=== PATIENT | female | born 1960 | race Caucasian/White ===

== ENCOUNTER 2018-08-16 05:48 | Day surgery (SDC) | payer BC ==
--- NOTE | 2018-08-06 09:52 | HP ---
HISTORY AND PHYSICAL: DATE OF SURGERY: 08/16/18 DATE OF OFFICE VISIT: 08/06/18 SURGEON: Raven Meraz MD * (DICTATED BY JODY GRACE) PROCEDURE: Left knee arthroscopy with partial medial meniscectomy, possible chondroplasty, possible synovectomy. CHIEF COMPLAINT: Left knee pain. HISTORY OF PRESENT ILLNESS: Ms. Julio Kamara is a 58-year-old female with complaints of left knee pain and an MRI confirmed a meniscus tear and she has elected to proceed with surgery which is scheduled for 08/16/18. PAST MEDICAL HISTORY: 1. Anxiety. 2. PVCs. PAST SURGICAL HISTORY: 1. Cardia ablation. 2. Cyst removal from the right foot. 3. [place] teeth extraction. 4. Excision of a skin lesion from her left ear. CURRENT MEDICATIONS: 1. Vitamin D3. 2. Meloxicam. 3. Restasis. 4. EpiPen. 5. Toprol 75 mg daily. 6. Magnesium 500 mg daily. 7. Xanax 0.25 mg 3 times a day as needed. ALLERGIES: To PENICILLIN AND BEE STING. FAMILY HISTORY: Diabetes, coronary artery disease, and cancer. SOCIAL HISTORY: She is a 58-year-old female. She lives with her . She does not smoke or use drugs. She uses occasional alcohol. REVIEW OF SYSTEMS: A complete 14-point review of systems was reviewed with the patient. It is all negative and noncontributory. PHYSICAL EXAMINATION GENERAL: She is well developed, well nourished, in no acute distress. VITAL SIGNS: She stands 5 feet 3 inches tall, weighs 133 pounds. Her blood pressure 116/76 and her heart rate is 72. HEENT: Normocephalic, atraumatic. NECK: Supple. No palpable lymph nodes. PULMONARY: Lungs are clear to auscultation bilaterally. CARDIAC: Regular rate and rhythm. Strong S1 and S2. ABDOMEN: Soft, nontender, nondistended. MUSCULOSKELETAL: Left lower extremity, the skin is intact. There are no open wounds or abrasions. There is a mild joint effusion. There is some tenderness over the medial joint line. Positive Nanci's. Negative Abhilash's. 2+ dorsalis pedis pulses. She has intact sensation. Her lower extremity muscle group strengths are intact at 5/5. NEUROLOGIC: She is alert and oriented x3. ASSESSMENT AND PLAN: Ms. Julio Kamara is a 58-year-old female with continued complaints of left knee pain and an MRI confirmed a meniscus tear. She has elected to proceed with the left knee arthroscopy with partial medial meniscectomy, possible chondroplasty, possible synovectomy. The surgery is scheduled for 08/16/[address] Meraz discussed the risks and benefits of the surgery at today's visit and all of her questions were answered. She will follow up with Dr. Meraz 2 weeks after the surgery. JODY GRACE [id number]/[facility] #: [id number] MTDRasheed
[~2018-08-16 05:48] MED LIST: Buffered Lidocaine 0.9% SYRIN* 5 ML/SYR SYRINGE INTRADERM ONE
[2018-08-16] MEDS ORDERED: Famotidine IV* 10 MG/ML 2 ML (20 mg) IV ONE (06:00)
[2018-08-16] MEDS ORDERED: Clindamycin 900 MG/D5W BAG(*) 900 MG/50 ML BAG IVPB ONE (06:02)
[2018-08-16] MEDS ORDERED: Famotidine IV* 10 MG/ML 2 ML (20 mg) ONE (06:02)
[2018-08-16] MEDS ORDERED: Buffered Lidocaine 0.9% SYRIN* 5 ML/SYR SYRINGE ONE (06:03)
[2018-08-16] MEDS ORDERED: methylPREDNISolone ACETATE 80* 80 MG/ML 1 ML VIAL ONE (06:57)
[2018-08-16] MEDS ORDERED: EPINEPHRINE 1 MG/ML 1 ML VIAL ONE (06:58)
[2018-08-16] MEDS ORDERED: Bupivacaine 0.5% SDV PF* 30ML VIAL ONE (06:58)
[2018-08-16] MEDS ORDERED: Acetaminophen TAB* 325 MG PO PRN (07:20)
[2018-08-16] MEDS ORDERED: oxyCODONE TAB* 5 MG TAB PO PRN (07:20)
[2018-08-16] MEDS ORDERED: Naloxone* 0.4 MG/ML 1 ML VIAL IV PRN (07:20)
[2018-08-16] MEDS ORDERED: HYDROmorphone INJ1* 1 MG/ML SYRINGE IV PRN (07:20)
[2018-08-16] MEDS ORDERED: DiMENhydriNATE IV* 50 MG/ML VIAL IV PUSH PRN (07:20)
[2018-08-16] MEDS ORDERED: Midazolam* 1 MG/ML 5 ML VIAL (5 MG) ONE (07:28)
[2018-08-16] MEDS ORDERED: fentaNYL* 50 MCG/ML 2 ML VIAL (100 MCG VIAL) ONE (07:45)
[2018-08-16] MEDS ORDERED: Ondansetron INJ* 2 MG/ML VIAL ONE (07:45)
[2018-08-16] MEDS ORDERED: Ketorolac INJ* 30 MG/ML 1 ML VIAL ONE (07:45)
[2018-08-16] MEDS ORDERED: Lidocaine 2% PF * 5 ML VIAL ONE (07:46)
[2018-08-16] MEDS ORDERED: Chloroprocaine 2%* 20 ML VIAL ONE (07:46)
[2018-08-16 09:32] VITALS: BP 124/75
--- NOTE | 2018-08-17 11:02 | OP ---
OPERATIVE NOTE: DATE OF OPERATION: 08/16/18 - SDS DATE OF : 60 ATTENDING SURGEON: Raven Meraz MD GRINDING MACHINE OPERATOR AUTOMATIC: JODY Salazar Ms. did help throughout the procedure with preparation of the leg, wound retraction, manipulation of the knee, and wound closure. ANESTHESIOLOGIST: Dr. Price. ANESTHESIA: Spinal. PRE-OP DIAGNOSES: 1. Left knee medial meniscal tear. 2. Daic-ht-cxwecydz osteoarthritis. POST-OP DIAGNOSES: 1. Left knee medial meniscal tear. 2. Uiwe-la-ajipqjmr osteoarthritis. 3. Radial tear of the lateral meniscus. OPERATIVE PROCEDURE: Left knee arthroscopy with partial medial meniscectomy and partial lateral meniscectomy. ESTIMATED BLOOD LOSS: Less than 25 cc. COMPLICATIONS: None. SPECIMEN: None. BRIEF HISTORY/INDICATION: Ms. Julio Kamara is a 58-year-old female with left knee pain over the last year. She developed mechanical symptoms despite conservative treatment with physical therapy, antiinflammatories, and intraarticular injection. An MRI confirmed a medial meniscal tear. Due to the patient's continued pain and decreased quality of life, she elected to undergo left knee arthroscopy with partial meniscectomy, possible chondroplasty, possible synovectomy. Informed consent was obtained from the patient. She understood the risks of surgery included but were not limited to bleeding, infection, damage to nearby structures, continued pain, need for further surgery , re-tear of the meniscus, continued arthritic progression, stroke, heart attack , blood clot, and . She wished to proceed. INTRAOPERATIVE FINDINGS: Intraoperatively, the patient was noted to have a linear tear in the posterior one-half of the medial meniscus. This is in the white-red zone. She had some grade 2 and 3 [place] cartilage changes in the medial compartment affecting the medial femoral condyle. She also had a radial-type tear of the posterior horn of the lateral meniscus with displacement into the joint. DESCRIPTION OF PROCEDURE: Ms. Julio Kamara was identified in the preanesthesia unit. Her left lower extremity was marked as the correct operative site. Informed consent was signed and placed in the chart. The patient was taken to the operating room and placed under spinal anesthesia. Left lower extremity was prepped and draped in the usual sterile fashion. Preop time-out was made to correctly identify the patient, side, and site. Appropriate perioperative antibiotics were given within 1 hour of incision. A 0.5 cm anterolateral portal incision was made with a 15-blade and carried down through the skin and capsule. Trocar was introduced. As soon as the light and water sources were turned on, there was immediate visualization of the suprapatellar pouch. A tour was made of the knee joint. Suprapatellar pouch had no obvious abnormalities. Patellofemoral compartment had some minimal degenerative changes. No exposed subchondral bone. Medial gutter had no plica or loose body. Medial compartment showed some grade 2 and 3 [place] cartilages changes along the weightbearing portion of the medial femoral condyle. Posterior portion of the medial meniscus had a linear meniscal tear with some anterior displacement. ACL and PCL were intact. The knee was placed in a [id number] position. There was a radial tear in the posterior horn of the lateral meniscus. There was no significant cartilage degeneration in the lateral compartment. Lateral gutter showed no loose body or plica. Under direct visualization, a medial portal incision was made with a 15-blade. Probe was introduced. A second tour of the knee joint was performed. No additional findings were noted. Shaver and straight biter were used to perform partial lateral meniscectomy along the posterior horn of the lateral meniscus. This was in the white-red zone. Further probing of the lateral meniscus showed no additional tears. Next, the straight biter and shaver were used to perform partial medial meniscectomy. This was along the white-red zone of the medial meniscus. Radiofrequency ablation wand was used to further smooth the edge of the meniscus. Further probing of the medial meniscus showed no additional tears. The knee was copiously irrigated with sterile saline. The instruments were carefully removed. Incisions were closed using 3-0 nylon suture. Intraarticular injection of 80 mg Depo-Medrol and 6 cc of 0.25% Marcaine was placed in the knee joint. The patient's incisions were covered with Xeroform, 4x4's, Webril. Ridge pack and cold pack were placed over this. The patient's anesthesia was reversed without difficulty. She was taken to the PACU in stable condition. Intended weightbearing will be weightbearing as tolerated. Intended DVT prophylaxis will be aspirin. She will follow up in the clinic in 2 weeks' time for suture removal. [id number]/[facility] #: [id number] [facility]ITAL[facility]
== END 2018-08-16 09:57 | disposition home or self-care (01) ==
LOC: OR 05:48
PROVIDERS: ATTEND Orthopaedic Surgery Adult Reconstructive Orthopaedic Surgery
DX: S83.242A Other tear of medial meniscus, current injury, left knee, initial encounter (principal); S83.282A Other tear of lateral meniscus, current injury, left knee, initial encounter; X58.XXXA Exposure to other specified factors, initial encounter; Y92.9 Unspecified place or not applicable; M17.12 Unilateral primary osteoarthritis, left knee; I49.3 Ventricular premature depolarization; F41.9 Anxiety disorder, unspecified; Z85.828 Personal history of other malignant neoplasm of skin
CPT/HCPCS: J1040; J1885; J2250; J2400; J2405; J3010